=== PATIENT | female | born 1995 | race Caucasian/White ===

== ENCOUNTER → 2017-01-16 | Outpatient (CLI) | payer OTHER ==
--- NOTE | 2017-01-16 13:33 | MAMMOGRAPHY REPORT ---
ULTRASOUND OF RIGHT BREAST: 01/16/2017 CLINICAL HISTORY: The patient reports a palpable lump in the right breast for a few weeks. COMPARISON: No prior exams were available for comparison. TECHNIQUE: Real-time targeted ultrasound of the right breast was performed. FINDINGS: Real-time, high resolution targeted ultrasound was performed of the area of the palpable lump pointe d out by the patient, in the right subareolar region at approximately 11:00. At the site of the pal pable lump there is an oval circumscribed parallel isoechoic mass which measures 5 x 3 x 5 mm. The mass is probably benign and may represent a complicated cyst versus a benign solid mass such as a fi broadenoma or papilloma. The patient denies any nipple discharge. The options of biopsy versus sylvester rt interval follow-up were discussed with the patient. She would like to weigh her options before m aking a decision. IMPRESSION: ACR-BI-RADS CATEGORY 3: PROBABLY BENIGN - FOLLOW-UP RECOMMENDED Circumscribed 5 mm isoechoic mass at the site of the palpable lump in the right 11:00 subareolar stalin ast. The mass is probably benign and may represent a complicated cyst versus a solid mass such as a fibroadenoma or papilloma. Recommend follow-up ultrasound of the right breast in 6 months to confi rm stability; also recommend clinical follow-up and if the lump clinically increases in size before the 6 months, she should return sooner for repeat ultrasound. The option of biopsy was also discuss ed with the patient, and she would like to weigh her options before making a decision. The patient was verbally notified of the results. Linnea Hill M.D. /:01/16/2017 12:14:28 Graphic Design Professor: Linnea Hill MD, [facility] letter sent: Follow Up Recommended 3 BI-RADS Code: ACR-BI-RADS Category 3: Probably Benign
== END | disposition home or self-care (01) ==
LOC: C.MAMM 11:15
PROVIDERS: ATTEND Physician Assistant Medical
DX: N63 Unspecified lump in breast (principal)